=== PATIENT | female | born 1990 | race Caucasian/White ===

== ENCOUNTER → 2017-08-19 | Outpatient (CLI) | payer MEDICAID ==
[~2017-08-19] MED LIST: AC325T PO; AMOX500T2 PO; CEPH500C PO; CPR500T PO; GENT3.5O18 OP; HYDR-2889 PO; HYDR-2997 PO; HYDR-707 PO; Ibuprofen PO; KETO-22 PO; LRT10T PO; NAPR-243 PO; NITR-65 PO; NITR100C PO; OXYC-12 PO; PREN-54 PO; PREN1TAB25 PO; PRENATAL VITAMINS; PRM25T PO; PROM25SU10 RC; SULF1TAB35 PO; TRAM50TA2 PO; TRM50T PO
--- NOTE | 2017-08-19 13:53 | Diagnostic Imaging Report ---
PROCEDURE: US OB SINGLE FETUS <14 WKS. INDICATION: Evaluation for size and dates TECHNIQUE: Multiple real-time grayscale images were obtained of the gravid uterus. CORRELATION STUDY: None FINDINGS: There is presence of a single viable intrauterine currently in transverse position. [place] rump length measuring 20.4 mm with estimated age of 8 weeks 5 days. Estimated date of delivery of March 26, 2018. No abnormal perigestational fluid collections. heart tones demonstrate a rate of approximately 179 beats per minutes. Imaging of the adnexa demonstrates nonvisualization of either ovary could be owing to position or obscured by overlying bowel gas. IMPRESSION: Findings compatible with early viable interpreted estimated age of 8 weeks 5 days for sonographic estimated date of delivery March 26, 2018. Dictated by: Dictated on workstation # [id number]
== END ==
LOC: RAD 12:02
PROVIDERS: ATTEND Family Medicine
DX: Z36 Encounter for antenatal screening of mother (principal); Z3A.08 8 weeks gestation of pregnancy
CPT/HCPCS: 76801

== ENCOUNTER → 2017-11-10 | Outpatient (CLI) | payer MEDICAID ==
--- NOTE | 2017-11-10 14:43 | Diagnostic Imaging Report ---
INDICATION: survey. TECHNIQUE: Multiple real-time grayscale images were obtained over the gravid uterus. COMPARISON: 08/19/2017. FINDINGS: A single live intrauterine fetus is seen measuring 20 weeks 2 days in size with normal interval growth compared to the prior study. The fetus is in breech presentation at this time. Amniotic fluid was qualitatively normal. Placenta is posterior and grade 2 with no evidence of previa. heart rate was 144 beats per minute. anatomical survey demonstrates no detectable abnormalities. Normal-appearing kidneys, bladder, stomach, ventricles, four-chamber heart, and three-vessel cord noted. Normal appearing cord insertion and spine views were also noted. Cervical length is normal at 3.4 cm. Maternal ovaries were not visualized. Biometrical measurements are as follows: Biparietal 4.6 cm, age 20 weeks 0 days. Head circumference 17.4 cm, age 20 weeks 0 days. Abdominal circumference 14.6 cm, age 20 weeks 0 days. Femur length 3.5 cm, age 21 weeks 0 days. Sonographic estimate age: 20 weeks 2 days. Sonographic estimated date of delivery: 03/28/18. Estimated Weight: 347 gm (+/- 51 gm). LMP percentile: 33%. heart rate: 144 beats per minute. number: 1 of 1. IMPRESSION: Single live intrauterine fetus measuring at 20 weeks 2 days in size with normal interval growth compared to the prior study. There were no detectable abnormalities. Dictated by: Dictated on workstation # [id number]
== END ==
LOC: RAD 12:13
PROVIDERS: ATTEND Family Medicine
DX: Z34.92 Encounter for supervision of normal pregnancy, unspecified, second trimester (principal); Z3A.20 20 weeks gestation of pregnancy
CPT/HCPCS: 76805

== ENCOUNTER 2018-03-28 06:00 | Inpatient (IN) | payer MEDICAID ==
[~2018-03-28] VITALS: Ht 165.1 cm; Wt 111.6 kg
[2018-03-28] VITALS (30 sets, daily range): BP systolic 105–145; BP diastolic 57–94
[2018-03-28] MEDS ORDERED: D5 LR IV SOLUTION 1,000 ML IV SCH (06:12)
[2018-03-28 06:42] LABS: BASOPHILS % (AUTO) 0 % (0-10); EOSINOPHILS # (AUTO) 0.1 10^3/uL (0.0-0.3); EOSINOPHILS % (AUTO) 1 % (0-10); HEMATOCRIT 33 % (35-52); HEMOGLOBIN 10.7 G/DL (11.5-16.0); LYMPHOCYTES # (AUTO) 2.8 X 10^3 (1.0-4.0); LYMPHOCYTES % (AUTO) 32 % (12-44); MEAN CORPUSCULAR HEMOGLOBIN 29 PG (25-34); MEAN CORPUSCULAR HGB CONC 33 G/DL (32-36); MEAN CORPUSCULAR VOLUME 88 FL (80-99); MEAN PLATELET VOLUME 13.1 FL (7.4-10.4); MONOCYTES # (AUTO) 0.6 X 10^3 (0.0-1.0); MONOCYTES % (AUTO) 7 % (0-12); NEUTROPHILS # (AUTO) 5.2 X 10^3 (1.8-7.8); NEUTROPHILS % (AUTO) 60 % (42-75); PLATELET COUNT 163 10^3/uL (130-400); RED BLOOD COUNT 3.71 10^6/uL (4.35-5.85); RED CELL DISTRIBUTION WIDTH 14.4 % (10.0-14.5); WHITE BLOOD COUNT 8.7 10^3/uL (4.3-11.0)
[2018-03-28] MEDS ORDERED: OXYTOCIN/NORMAL SALINE 500 ML IV SCH ×2 (07:25→12:25)
--- NOTE | 2018-03-28 07:25 | History & Physical-OB ---
OB - Chief Complaint & HPI Date/Time Date of Admission: Date of Admission: March 28, 2018 at 06:03 Time Seen by Provider: 07:15 Chief Complaint/History OB-Reason for Admission/Chief: Induction of Labor Hx : 2 Hx Para: 1 Expected Date of Delivery: Mar 26, 2018 Gestational Age in Weeks: 40 Gestational Age in Days: 2 Indication for induction: post dates Admission Nurse Assessment Rev: Yes History of Labs GBS negative Allergies and Home Medications Allergies Coded Allergies: NKANo Known Allergies (Unverified Allergy, Mild, 06/07/09) Home Medications Sulfamethoxazole/Trimethoprim 1 Each Tablet, 1 EACH PO BID Prescribed by: KRYSTIAN PINA on 05/03/16 1612 Patient Home Medication List Home Medication List Reviewed: Yes OB - History Hx of Present Care: Yes Ultrasounds: Normal mid trimester US Obstetrical Complications: None Medical Complications: None Obstetrical History Hx Termination: Yes Hx Multiple Gestation: No Hx Stillbirth: No Hx Complication: No Hx Induced Hypertens: No Hx Maternal Gestational Diabet: No Delivery History Hx Dystocia: No Hx Large For Gestational Age I: No Hx Small for Gestational Age I: No Hx Section: No Hx Vaginal Delivery Post C-Sec: No Hx Blood Disorders: No Adverse Rxn to Tranfusion: No Patient Past Medical History no chronic medical problems Social History/Family History HIV/AIDS: No Sexually Transmitted Disease: No Immunizations Hepatitis A: No Hepatitis B: No Tetanus Booster (TDap): Unknown Date of Influenza Vaccine: Sep 10, 2014 OB - Admission Exam Physical Exam Vitals: Vital Signs 03/28/18 06:09 Temp 98.1 Pulse 83 Resp 18 B/P (MAP) 131/83 (99) O2 Delivery Room Air HEENT: Moist Membranes Heart: Rhythm Normal Lungs: Clear Abdomen: Gravid Extremities: Normal Cervical Dilatation: 2cm Effacement: 50% Station: -3 Membranes: Intact Heart Rate: 140's Accelerations: Accelerations Present Decelerations: No Decelerations Short Term Variability: Present Skilled Nursing Variability: Average (6-25) Contractions on Admission: >10 Minutes Apart Intensity: Mild Ashraf Scoring Tool (Modified) Dilation (cm): 1-2cm (1) Effacement (%): 31-51% (1) Descent/Station: -3 (0) Cervix Consistency: Soft (2) Cervix Position: Middle/Mid-Position (1) Add 1 point for: Each previous vaginal delivery (1) Ashraf Score: 6 Labs Laboratory Tests Test 03/28/18 06:15 Range/Units White Blood Count 8.7 4.3-11.0 10^3/uL Red Blood Count 3.71 L 4.35-5.85 10^6/uL Hemoglobin 10.7 L 11.5-16.0 G/DL Hematocrit 33 L 35-52 % Mean Corpuscular Volume 88 80-99 FL Mean Corpuscular Hemoglobin 29 25-34 PG Mean Corpuscular Hemoglobin Concent 33 32-36 G/DL Red Cell Distribution Width 14.4 10.0-14.5 % Platelet Count 163 130-400 10^3/uL Mean Platelet Volume 13.1 H 7.4-10.4 FL Neutrophils (%) (Auto) 60 42-75 % Lymphocytes (%) (Auto) 32 12-44 % Monocytes (%) (Auto) 7 0-12 % Eosinophils (%) (Auto) 1 0-10 % Basophils (%) (Auto) 0 0-10 % Neutrophils # (Auto) 5.2 1.8-7.8 X 10^3 Lymphocytes # (Auto) 2.8 1.0-4.0 X 10^3 Monocytes # (Auto) 0.6 0.0-1.0 X 10^3 Eosinophils # (Auto) 0.1 0.0-0.3 10^3/uL Basophils # (Auto) 0.0 0.0-0.1 10^3/uL OB - Assessment/Plan/Diagnosis Assessment Assessment: induction of labor Admission Dx 1. IUP at 40 weeks gestation Admission Status: Inpatient Order (span 2 midnights) Reason for Inpatient Admission: L&D Plan Plan: Induction Induction Method: AROM Other Plan pitocin augmentation ARIANNA ADAMS MD March 28, 2018 07:25
[2018-03-28] MEDS ORDERED: BUTORPHANOL INJ 2 MG/ML (STADOL) VIAL IV PRN (07:30)
[2018-03-28] MEDS: LACTATED RINGERS 1,000 ML IV SCH (11:30)
[2018-03-28] MEDS ORDERED: SUFENTA 0.6MCG/ML BUPIVA 0.125 100 ML ONE (12:00)
--- NOTE | 2018-03-28 12:24 | OB Labor & Delivery Record ---
L&D History Date of Service Date of Service: March 28, 2018 History Expected Date of Delivery: Mar 26, 2018 Gestational Age in Weeks: 40 Hx : 3 Hx Para: 2 Complications Events: Routine care Operative Indications (Cesarea: N/A-Vaginal Delivery Intrapartal Events: None L&D Stage1 Stage One Onset of Labor - Date: March 28, 2018 Onset of Labor - Time: 07:15 Monitors and Tracing Monitor Mode: Internal Heart Rate: 140 Monitor Accelerations: Uniform Monitor Decelerations: Variable Station: -2 Penitentiary Variability: Average (6-10) Short Term Variability: Present Presentation: Vertex Vital Signs VS - Last 72 Hours, by Label 03/28/18 03/28/18 03/28/18 03/28/18 06:09 07:15 07:30 07:45 Temp 98.1 98.3 Pulse 83 93 83 82 Resp 18 18 B/P (MAP) 131/83 (99) 127/87 (100) 128/87 (101) 136/86 (103) O2 Delivery Room Air Room Air Room Air Room Air 03/28/18 03/28/18 03/28/18 03/28/18 08:00 08:15 08:30 08:45 Temp 98.4 Pulse 76 81 90 75 Resp 16 B/P (MAP) 122/67 (85) 145/83 (103) 125/82 (96) 130/78 (95) O2 Delivery Room Air Room Air Room Air Room Air 03/28/18 03/28/18 03/28/18 03/28/18 09:00 09:15 09:30 09:45 Pulse 72 80 86 77 B/P (MAP) 105/58 (74) 111/59 (76) 131/68 (89) 122/60 (80) O2 Delivery Room Air Room Air Room Air Room Air 03/28/18 03/28/18 03/28/18 10:00 10:15 10:30 Temp 98.3 Pulse 82 82 77 Resp 18 B/P (MAP) 120/70 (87) 135/94 (108) 127/76 (93) O2 Delivery Room Air Room Air Room Air Signs of Distress by FHT Signs of Distress no Rupture of Membranes Spontaneous Ruture of Membrane: No Amniotic Membrane Rupture Time: 716 Amniotic Membrane Fluid Desc.: Clear L&D Stage2 Stage Two Stage II Date: March 28, 2018 Stage II Time: 12:12 Monitors and Tracing Monitor Mode: Internal Heart Rate: 140 Monitor Accelerations: Uniform Monitor Decelerations: Variable Product Grader Variability: Average (6-10) Short Term Variability: Present Position: Left Occiput Anterior Presentation: Vertex Signs of Distress by FHT Signs of Distress no Cord Descript/Complications Cord Vessel Description: 3 Vessels Delivery Type Infant Delivery Method: Spontaneous Vaginal Anterior Shoulder: Left Episiotomy/Perineal Laceration Laceraction(s)/Extensions: No Condition of Infant Delivery 1 minute Comment: 8 5 minute Comment: 9 Condition of Infant Condition of Infant: Living Exam: No Observed Abnormalities Resuscitation Resuscitation: N/A - Spontaneous Resp L&D Stage3 Stage Three Stage III Date: March 28, 2018 Stage III Time: 12:16 Pictocin Pitocin Administration mu/min: 12 Pitocin ml/hr: 12 Placenta Delivery Placenta Delivery: Spontaneous Delivery Summary Summary Estimated blood loss (mL): 200cc Condition of Delivery Examined: Cervix Examined Post Hemorrhage: No Intervention Required none ARIANNA ADAMS MD March 28, 2018 12:24
[2018-03-28] MEDS ORDERED: WITCH HAZEL(TUCKS) 40 EA JAR TOP PRN (12:30)
[2018-03-28] MEDS ORDERED: MEASLES,MUMPS,RUBELLA 1 EA INJ SQ ONE (12:30)
[2018-03-28] MEDS ORDERED: BENZOCAINE/MENTHOL (DERMOPLAST) 56 ML CAN TP PRN (12:30)
[2018-03-28] MEDS ORDERED: TETANUS,DIPTH,PERTUSS P/F (BOOSTRIX) 0.5 ML VIAL IM ONE (12:30)
[2018-03-28] MEDS ORDERED: HYDROcodone/APAP 5 MG/325 MG (LORTAB) TAB PO PRN (12:30)
[2018-03-28] MEDS: IBUPROFEN 600 MG (MOTRIN) TAB PO SCH ×3 (12:39→23:49)
[2018-03-28] MEDS ORDERED: CATHETER FLUSH 10 ML SYR IV SCH (14:00)
[2018-03-29] VITALS: BP 95/56
[2018-03-29 04:00] VITALS: BP 96/58
[2018-03-29] MEDS: LACTATED RINGERS 1,000 ML IV SCH (04:11)
[2018-03-29] MEDS: IBUPROFEN 600 MG (MOTRIN) TAB PO SCH ×2 (06:00→13:25)
[2018-03-29] MEDS: CATHETER FLUSH 10 ML SYR IV SCH ×2 (06:01→06:37)
[2018-03-29 06:09] LABS: BASOPHILS % (AUTO) 0 % (0-10); EOSINOPHILS # (AUTO) 0.1 10^3/uL (0.0-0.3); EOSINOPHILS % (AUTO) 1 % (0-10); HEMATOCRIT 31 % (35-52); HEMOGLOBIN 9.9 G/DL (11.5-16.0); LYMPHOCYTES # (AUTO) 2.6 X 10^3 (1.0-4.0); LYMPHOCYTES % (AUTO) 29 % (12-44); MEAN CORPUSCULAR HEMOGLOBIN 29 PG (25-34); MEAN CORPUSCULAR HGB CONC 32 G/DL (32-36); MEAN CORPUSCULAR VOLUME 88 FL (80-99); MEAN PLATELET VOLUME 12.7 FL (7.4-10.4); MONOCYTES # (AUTO) 0.6 X 10^3 (0.0-1.0); MONOCYTES % (AUTO) 7 % (0-12); NEUTROPHILS # (AUTO) 5.8 X 10^3 (1.8-7.8); NEUTROPHILS % (AUTO) 63 % (42-75); PLATELET COUNT 160 10^3/uL (130-400); RED BLOOD COUNT 3.47 10^6/uL (4.35-5.85); RED CELL DISTRIBUTION WIDTH 14.8 % (10.0-14.5); WHITE BLOOD COUNT 9.2 10^3/uL (4.3-11.0)
[2018-03-29] MEDS ORDERED: PRENATAL VITAMIN 1 EA TAB PO SCH (07:00)
--- NOTE | 2018-03-29 07:25 | Discharge Summary ---
Diagnosis/Chief Complaint Date of Admission March 28, 2018 at 06:03 Date of Discharge March 29, 2018 Discharge Date: March 29, 2018 Discharge Time: 15:00 Admission Diagnosis Admission Diagnosis 1. Intrauterine at term 40 weeks gestation 2. Anemia due to iron efficiency and Discharge Diagnosis 1. Intrauterine at term 40 weeks gestation 2. Anemia due to iron efficiency and Reason Hospital Visit 27-year-old 3 now term 3 female who initially presented to labor and delivery during the morning of March 28, 2018 for induction of labor. Patient was noted to be a 40 weeks 2 days gestation. Her EDC was noted to be March 26, 2018. Her care was essentially unremarkable. She had a few contractions on admission. Discharge Summary-OBS Procedures 1. Spontaneous vaginal delivery Discharge Physical Examination Allergies: Coded Allergies: NKANo Known Allergies (Unverified Allergy, Mild, 06/07/09) Vitals & I&Os Vital Signs Date Time Temp Pulse Resp B/P (MAP) Pulse Ox O2 Delivery O2 Flow Rate FiO2 03/29/18 04:00 97.4 60 18 96/58 (71) 97 Room Air 03/28/18 12:15 10.00 General Appearance: No Acute Distress Respiratory: Clear to Auscultation Cardiovascular: Regular Rate Abdominal: Soft Hospital Course Patient was admitted during the morning of March 28, 2018. She underwent AROM with placement of scalp electrode. Fluid was noted to be clear. Patient required Pitocin augmentation to achieve adequate contraction pattern. She was noted to have variable decelerations during the course of labor. Ultimately she went on to completion and was allowed to push. With pushing she delivered a term viable male with Apgars of 8 at 1 minute and 9 at 5 minutes. Delivery was accomplished on Mar 28 2018 at 1212. There was no episiotomy. Following delivery patient underwent routine care orders. She was noted to have no complications during the remainder of her hospital stay. She tolerated regular diet. She was ambulatory and without any shortness of breath. She denied any leg pain. She was felt ready for dismissal during the afternoon of March 29, 2018. She will utilize ibuprofen at home for uterine cramping. Pending Labs Laboratory Tests 03/29/18 05:53: White Blood Count 9.2, Red Blood Count 3.47, Hemoglobin 9.9, Hematocrit 31, Mean Corpuscular Volume 88, Mean Corpuscular Hemoglobin 29, Mean Corpuscular Hemoglobin Concent 32, Red Cell Distribution Width 14.8, Platelet Count 160, Mean Platelet Volume 12.7, Neutrophils (%) (Auto) 63, Lymphocytes (%) (Auto) 29 , Monocytes (%) (Auto) 7, Eosinophils (%) (Auto) 1, Basophils (%) (Auto) 0, Neutrophils # (Auto) 5.8, Lymphocytes # (Auto) 2.6, Monocytes # (Auto) 0.6, Eosinophils # (Auto) 0.1, Basophils # (Auto) 0.0 Discharge Instructions to patient/family Please see electronic discharge instructions given to patient. Discharge Medications Reviewed and agree with Discharge Medication list on patient's Discharge Instruction sheet Clinical Quality Measures DVT/VTE Risk/Contraindication: Risk Factor Score Per Nursin RFS Level Per Nursing on Admit: 2=Moderate ARIANNA ADAMS MD March 29, 2018 07:25
--- NOTE | 2018-03-29 07:28 | Discharge Inst-Women's Service ---
Discharge Inst-Women's Serv Depart Medication/Instructions New, Converted or Re-Newed RX: Other Instructions Jbly-huk-azbofde ibuprofen 2 or 3 tablets every 6 hours as needed for uterine cramping. Consults/Follow Up Additional Follow Up: Yes (In [address] Baer) Activity Activity: Activity as Tolerated Driving Instructions: You May Drive Nothing Inside Vagina: No Tarrants (for 6 weeks) Diet Discharge Diet: Regular Diet Return to The Hospital For: As below Symptoms to Report to : Bleeding Excessive, Pain Increased, Fever Over 101 Degrees F, Vaginal Discharge ARIANNA Valdes MD March 29, 2018 07:28
[2018-03-29 08:30] VITALS: BP 113/71
[2018-03-29 12:00] VITALS: BP 121/85
[2018-03-29 15:45] VITALS: BP 121/85
== END 2018-03-29 15:45 | disposition home or self-care (01) | DRG 775 ==
LOC: LDRP 06:03
PROVIDERS: ADMIT Family Medicine; ATTEND Family Medicine
PROC: 10E0XZZ Delivery of Products of Conception, External Approach (ICD-10-PCS; principal; 2018-03-28)
PROC: 10907ZC Drainage of Amniotic Fluid, Therapeutic from Products of Conception, Via Natural or Artificial Opening (ICD-10-PCS; 2018-03-28)
DX: O48.0 Post-term pregnancy (principal); O99.02 Anemia complicating childbirth; D50.9 Iron deficiency anemia, unspecified; Z3A.40 40 weeks gestation of pregnancy; Z37.0 Single live birth
CPT/HCPCS: 36415; 85025; 86850; 86900; 86901

== ENCOUNTER 2018-08-22 09:56 | Emergency (ER) | payer SELFPAY ==
[~2018-08-22] VITALS: Ht 160 cm; Wt 77.1 kg
--- OUTSIDE RECORDS SUMMARY | 2018-08-22 10:01 | XMS REPORT ---
Author Author NICHOLE BUTLER [facility] Address [address] [place] [address] Care Team Providers Care Drywall Finishing Foreman Name Role Phone CARRIENICHOLE Unavailable PROBLEMS Type Condition ICD9-CM Code ARX12-EG Code Onset Dates Condition Status SNOMED Code Problem Seasonal allergic rhinitis, unspecified allergic rhinitis trigger J30.2 Active 696492963 Problem Unspecified contraceptive management V25.9 Active 111916640 ALLERGIES No Information ENCOUNTERS Encounter Location Date Diagnosis [facility] [address] [address] Jun, [facility] [address] [address] Feb, BMI 40.0-44.9, adult Z68.41 and Lower back pain M54.5 [facility] [address] [address] March, Left hand pain M79.642 and Closed nondisplaced fracture of shaft of fifth metacarpal bone of left hand, initial encounter S62.357A [facility] [address] [address] Jan, Seasonal allergic rhinitis, unspecified allergic rhinitis trigger J30.2 [facility] [id number] [place] [address] Jan, [facility] [address] [address] Jan, [facility] [id number] [place] [address] Jan, [facility] [address] [address] Jan, [facility] [id number] [address] Jun, [facility] [address] [address] 15 Dec, 2010 [facility] [address] [address] Oct, [facility] [address] [address] Oct, [facility] [address] [address] Oct, [facility] [id number] [place] [address] Oct, [facility] [address] [address] Oct, [facility] [address] [address] Oct, [facility] [address] [address] Oct, [facility] [address] [address] Sep, IMMUNIZATIONS No Known Immunizations SOCIAL HISTORY Never Assessed REASON FOR VISIT lower back pain since this am. denies dysuria. sommer pt is 37 weeks , no UTI seen. pt encourage to go to hospital ad r/o labor. pt verbalized understanding. pts mother here to drive her. PLAN OF CARE VITAL SIGNS Height 65 in 2018-03-07 Weight 243.0 lbs 2018-03-07 Temperature 98.0 degrees Fahrenheit 2018-03-07 Heart Rate 90 bpm 2018-03-07 Respiratory Rate 20 2018-03-07 BMI 40.43 kg/m2 2018-03-07 Blood pressure systolic 128 mmHg 2018-03-07 Blood pressure diastolic 78 mmHg 2018-03-07 MEDICATIONS Medication Instructions Dosage Frequency Start Date End Date Duration Status Flonase Allergy Relief 50 MCG/ACT Nasally twice per day 1 spray in each nostril Jan, 30 day(s) Not-Taking RESULTS Name Result Date Reference Range UA LONG DIP (IN HOUSE) 2018-03-07 Lot # [id number] Exp date 2017 Clarity clear Color yellow Odor none GLU negative ARACELIS negative KET negative SG 1.020 BLO negative pH 5.5 Protein negative URO 0.2 NIT negative ROBYN 1+ Lot # [id number] Exp date February 2018 PROCEDURES Procedure Date Ordered Result Body Site URINALYSIS, AUTO, W/O SCOPE March 07, 2018 INSTRUCTIONS MEDICATIONS ADMINISTERED No Known Medications
--- OUTSIDE RECORDS SUMMARY | 2018-08-22 10:01 | XMS REPORT ---
Author Author CALLI COX Organization [facility] Address [address] [place] [address] Care Team Providers Care Cereal Maker Name Role Phone CALLI COX Unavailable PROBLEMS Type Condition ICD9-CM Code [id number] Code Onset Dates Condition Status SNOMED Code Problem Seasonal allergic rhinitis, unspecified allergic rhinitis trigger J30.2 Active 002186041 Problem Unspecified contraceptive management V25.9 Active [id number] ALLERGIES No Known Allergies SOCIAL HISTORY Never Assessed PLAN OF CARE Activity Details Follow Up prn Reason: VITAL SIGNS Height 65 in 2017-04-18 Weight 212.2 lbs 2017-04-18 Temperature 99.0 degrees Fahrenheit 2017-04-18 Heart Rate 92 bpm 2017-04-18 Respiratory Rate 20 2017-04-18 BMI 35.31 kg/m2 2017-04-18 Blood pressure systolic 90 mmHg 2017-04-18 Blood pressure diastolic 60 mmHg 2017-04-18 MEDICATIONS No Known Medications RESULTS Name Result Date Reference Range Xray : Hand, Left 3 views (IN HOUSE) 2017-04-18 PROCEDURES Procedure Date Ordered Result Body Site X-RAY EXAM OF HAND April 18, 2017 IMMUNIZATIONS No Known Immunizations
--- OUTSIDE RECORDS SUMMARY | 2018-08-22 10:01 | XMS REPORT ---
Author Author REGALADODONY Wright [facility] Address [address] [place] [address] Care Team Providers Care Asl Interpreter Name Role Phone DONY REGALADO Unavailable PROBLEMS Type Condition ICD9-CM Code FBQ35-GC Code Onset Dates Condition Status SNOMED Code Problem Seasonal allergic rhinitis, unspecified allergic rhinitis trigger J30.2 Active 713949070 Problem Unspecified contraceptive management V25.9 Active 982112683 ALLERGIES No Known Allergies ENCOUNTERS Encounter Location Date Diagnosis [facility] [id number] [place] [address] Jun, Evaluation regarding contraception options Z30.09 [facility] [id number] [place] [address] Feb, BMI 40.0-44.9, adult Z68.41 and Lower back pain M54.5 [facility] [id number] [place] [address] March, Left hand pain M79.642 and Closed nondisplaced fracture of shaft of fifth metacarpal bone of left hand, initial encounter S62.357A [facility] [id number] [place] [address] Jan, Seasonal allergic rhinitis, unspecified allergic rhinitis trigger J30.2 [facility] [id number] [place] [address] Jan, [facility] [id number] [place] [address] Jan, [facility] [id number] [place] [address] Jan, [facility] [address] [address] [address] Jan, [facility] [address] [place] [address] Jun, [facility] [address] [address] 15 Dec, 2010 [facility] [address] [address] Oct, [facility] [address] [place] [address] Oct, [facility] [address] [place] [address] 14 Oct, 2010 [facility] [address] [place] [address] Oct, [facility] [address] [place] [address] Oct, [facility] [address] [address] Oct, [facility] [address], [place] [address] Oct, [facility] [address] [address] Sep, IMMUNIZATIONS No Known Immunizations SOCIAL HISTORY Never Assessed REASON FOR VISIT iud consult-----Neema PLAN OF CARE Activity Details Follow Up 3 months/1 year Reason: VITAL SIGNS Height 65 in 2018-07-03 Weight 215 lbs 2018-07-03 Temperature 98.3 degrees Fahrenheit 2018-07-03 Heart Rate 90 bpm 2018-07-03 Respiratory Rate 20 2018-07-03 BMI 35.77 kg/m2 2018-07-03 Blood pressure systolic 104 mmHg 2018-07-03 Blood pressure diastolic 62 mmHg 2018-07-03 MEDICATIONS No Known Medications RESULTS Name Result Date Reference Range TEST, URINE (IN HOUSE) 2018-07-03 RESULTS negative Lot # [id number] Control + Exp date 12/28/19 PROCEDURES Procedure Date Ordered Result Body Site URINE TEST Jul 03, 2018 No Charge Jul 03, 2018 INSTRUCTIONS MEDICATIONS ADMINISTERED No Known Medications
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
[2018-08-22] MEDS ORDERED: DOXY100C42 PO (10:11)
[2018-08-22] MEDS ORDERED: NS IV 1000 ML 1,000 ML IV SCH (10:15)
[2018-08-22] MEDS ORDERED: KETOROLAC 30 MG/ML VIAL IVP ONE (10:15)
[2018-08-22] MEDS ORDERED: cefTRIAXone FOR IV USE 1,000 MG in NS (IVPB) 50 ML IV ONE (10:15)
--- NOTE | 2018-08-22 10:26 | ED General ---
General Chief Complaint: General Problems/Pain Stated Complaint: FEVER;CHILLS;HEADACHES Nursing Triage Note: ARRIVED VIA AMB TO ROOM 05. PT STATES SHE HAS BEEN SICK FOR OVER A WEEK WITH HEADACHES, GEN BODY ACHES, FEVER, AND RASH. HAS BEEN DX FOR UTI AND TREATED FOR [place] SPOTTED FEVER BUT HAS NOT HAD BLOOD WORK TO PROVE IT. MOM DOES MOST OF THE TALKING AND STATES THEY ARE NOT LEAVING UNTIL THEY KNOW WHATS WRONG.. Nursing Sepsis Screen: No Definite Risk Source of Information: Patient, Family (mom) Exam Limitations: No Limitations History of Present Illness Date Seen by Provider: Aug 22, 2018 Time Seen by Provider: 10:12 Initial Comments The patient arrives to the ER by private conveyance with her mother and a chief complaint that she has had 3 weeks now malaise and in the last week is gotten worse with fever or chills and a faint red body rash. She has gone 2 weeks ago to an urgent care doctor and was told she had allergies. Last week, Tuesday she went again because of the rash starting up and was told it might be [place] spotted fever and put on doxycycline and given a shot of steroids for the rash. She does not have any blood or workup done at that time. Her mother says that this was unsatisfactory because now 5 days later the patient is still having night sweats and subjective fevers chills body aches and headache. The mother says she been using Tylenol every 2 hours and ibuprofen as well but the patient insists she's not had any Tylenol Motrin or other NSAIDs today. No objective fevers. No nausea or vomiting. She has had decreased appetite and thinks in the last 3 weeks she's lost about 10 pounds. No diarrhea, abdominal pain, chest pain, shortness of breath, cough, fevers. She picked up the doxycycline , 5 days ago and started taking it but has not taken it today because she says she's not had any appetite take any medicine with. She's been taking 100 mg twice a day. The patient was also told Tuesday last week 6 days ago that she had a UTI with bacteria seen in the urine and the doxycycline should be sufficient. The patient is tearful throughout the interview. Her mother insists that they are dissatisfied with her prior engagements with urgent care and they are scared that the patient is not getting better and worried that the diagnosis may be missed and that she may . The mother insists that they will not leave the ER until they have an answer. LMP yesterday. The patient denies any urinary symptoms then or now however she says she does have frequent urinary tract infections and when they do happen she does not have any symptoms until it gets so bad that it causes flank pain. She denies any flank pain today. Allergies and Home Medications Allergies Coded Allergies: NKANo Known Allergies (Unverified Allergy, Mild, 06/07/09) Home Medications Doxycycline Monohydrate 100 Mg Capsule, 100 MG PO BID, (Reported) Patient Home Medication List Home Medication List Reviewed: Yes Review of Systems Review of Systems Constitutional: chills, diaphoresis, dizziness, fever, malaise EENTM: No ear discharge, No hearing loss, No ear pain Respiratory: No cough, No short of breath Cardiovascular: No chest pain, No edema Gastrointestinal: No abdominal pain, No constipation, No diarrhea, No nausea, No vomiting Genitourinary: No discharge, No dysuria Musculoskeletal: No back pain, No joint pain; muscle pain, muscle stiffness, neck pain (bilateral) Skin: rash Psychiatric/Neurological: Denies Anxiety, Denies Depressed; Headache; Denies Numbness, Denies Paresthesia Past Nzkblrb-Ktpjef-Qtviqe Hx Patient Social History Alcohol Use: Denies Use Recreational Drug Use: Yes Drug of Choice: MJ Smoking Status: Never a Smoker Recent Foreign Travel: No Contact w/Someone Who Travel: No Recent Infectious Disease Expo: No Recent Hopitalizations: No Immunizations Up To Date Tetanus Booster (TDap): Unknown PED Vaccines UTD: Yes Date of Influenza Vaccine: Sep 10, 2014 Seasonal Allergies Seasonal Allergies: No Past Medical History Surgeries: Yes Ear Surgery, Eye Surgery Respiratory: No Cardiac: No Neurological: No Reproductive Disorders: No Female Reproductive Disorders: Denies Sexually Transmitted Disease: No HIV/AIDS: No Genitourinary: No Gastrointestinal: No Musculoskeletal: No Fractures Endocrine: No HEENT: No Chronic Ear Infection Cancer: No Psychosocial: No Anxiety, Depression Integumentary: No Eczema Blood Disorders: No Adverse Reaction/Blood Tranf: No Family Medical History No Family History of: AIDS Abdominal aortic aneurysm Dubois's disease Alcoholism Alzheimer's disease Aphasia Arthritis Asthma Cancer of mouth Cardiovascular disease Cataracts Colon cancer Completed stroke Congenital disease Congenital heart disease Coronary thrombosis Cystic fibrosis Deafness or hearing loss Dementia Diabetes mellitus Drug abuse Dysphasia Fibrocystic disease of breast Gastroenteritis Glaucoma Headache disorder Hypercholesterolemia Hypertension Infertility Kidney disease Myocardial infarction Neoplasm Not obtainable due to adoption Osteoporosis Parkinson's disease Prostate cancer Psychosocial problem Respiratory disorder Seizure disorder Severe allergy Thyroid disease Tuberculosis Visual disorder No Pertinent Family Hx Physical Exam Vital Signs Vital Signs - First Documented 08/22/18 10:00 Temp 98.4 Pulse 77 Resp 16 B/P (MAP) 134/74 (94) Pulse Ox 98 O2 Delivery Room Air Capillary Refill : Less Than 3 Seconds Height, Weight, BMI Height: 5'3.00" Weight: 170lbs. 0.0oz. [id number]; 40.9 BMI Method:Estimated General Appearance: No Apparent Distress, Anxious, Obese Eyes: Bilateral Eye Normal Inspection, Bilateral Eye PERRL, Bilateral Eye EOMI HEENT: PERRL/EOMI, TMs Normal (mild, chronic otosclerosis bilateral), Normal ENT Inspection, Pharynx Normal, Moist Mucous Membranes Neck: Full Range of Motion, Normal Inspection, Non Tender, Supple Respiratory: Chest Non Tender, Lungs Clear, Normal Breath Sounds, No Accessory Muscle Use, No Respiratory Distress Cardiovascular: Regular Rate, Rhythm, No Edema, Normal Peripheral Pulses Gastrointestinal: Normal Bowel Sounds, No Organomegaly, Non Tender, Soft Neurologic/Psychiatric: Alert, Oriented x3, No Motor/Sensory Deficits, special delivery carrier II- XII Norm as Tested, Other (anxious, tearful affect but easily consolable) Skin: Rash (faint, blanchable, erythematous macular rash on the forearms and trunk that is nonpruritic, non-excoriated without vesicles or nodules. Nonindurated. Spares palms and face.) Focused Exam Lactate Level 08/22/18 10:25: Lactic Acid Level 0.67 Lactic Acid Level Laboratory Tests Test 08/22/18 10:25 Lactic Acid Level 0.67 MMOL/L (0.50-2.00) Progress/Results/Core Measures Suspected Sepsis Recent Fever Within 48 Hours: Yes Infection Criteria Present: Documented Infection New/Unexplained Altered Menta: No Sepsis Screen: No Definite Risk SIRS Temperature:98.4 Pulse: 77 Respiratory Rate: 16 Laboratory Tests 08/22/18 10:25: White Blood Count 5.6 Blood Pressure 134 /74 Mean: 94 08/22/18 10:25: Lactic Acid Level 0.67 Laboratory Tests 08/22/18 10:25: Creatinine 0.78, INR Comment 1.0, Platelet Count 206, Total Bilirubin 0.3 Results/Orders Lab Results Laboratory Tests Test 08/22/18 10:20 08/22/18 10:25 08/22/18 11:51 Range/Units Urine Color YELLOW Urine Clarity CLEAR Urine pH 7 5-9 Urine Specific [place] 1.005 L 1.016-1.022 Urine Protein NEGATIVE NEGATIVE Urine Glucose (UA) NEGATIVE NEGATIVE Urine Ketones NEGATIVE NEGATIVE Urine Nitrite NEGATIVE NEGATIVE Urine Bilirubin NEGATIVE NEGATIVE Urine Urobilinogen NORMAL NORMAL MG/DL Urine Leukocyte Esterase NEGATIVE NEGATIVE Urine RBC (Auto) 2+ H NEGATIVE Urine RBC RARE /HPF Urine WBC NONE /HPF Urine Squamous Epithelial Cells 0-2 /HPF Urine Crystals NONE /LPF Urine Bacteria TRACE /HPF Urine Casts NONE /LPF Urine Mucus NEGATIVE /LPF Urine Culture Indicated NO Urine Opiates Screen NEGATIVE NEGATIVE Urine Oxycodone Screen NEGATIVE NEGATIVE Urine Methadone Screen NEGATIVE NEGATIVE Urine Propoxyphene Screen NEGATIVE NEGATIVE Urine Barbiturates Screen NEGATIVE NEGATIVE Ur Tricyclic Antidepressants Screen NEGATIVE NEGATIVE Urine Phencyclidine Screen NEGATIVE NEGATIVE Urine Amphetamines Screen NEGATIVE NEGATIVE Urine Methamphetamines Screen NEGATIVE NEGATIVE Urine Benzodiazepines Screen NEGATIVE NEGATIVE Urine Cocaine Screen NEGATIVE NEGATIVE Urine Cannabinoids Screen POSITIVE H NEGATIVE White Blood Count 5.6 4.3-11.0 10^3/uL Red Blood Count 4.59 4.35-5.85 10^6/uL Hemoglobin 12.5 11.5-16.0 G/DL Hematocrit 38 35-52 % Mean Corpuscular Volume 83 80-99 FL Mean Corpuscular Hemoglobin 27 25-34 PG Mean Corpuscular Hemoglobin Concent 33 32-36 G/DL Red Cell Distribution Width 15.0 H 10.0-14.5 % Platelet Count 206 130-400 10^3/uL Mean Platelet Volume 11.6 H 7.4-10.4 FL Neutrophils (%) (Auto) 42 42-75 % Lymphocytes (%) (Auto) 46 H 12-44 % Monocytes (%) (Auto) 10 0-12 % Eosinophils (%) (Auto) 1 0-10 % Basophils (%) (Auto) 1 0-10 % Neutrophils # (Auto) 2.3 1.8-7.8 X 10^3 Lymphocytes # (Auto) 2.6 1.0-4.0 X 10^3 Monocytes # (Auto) 0.5 0.0-1.0 X 10^3 Eosinophils # (Auto) 0.1 0.0-0.3 10^3/uL Basophils # (Auto) 0.1 0.0-0.1 10^3/uL Prothrombin Time 13.3 12.2-14.7 SEC INR Comment 1.0 0.8-1.4 Activated Partial Thromboplast Time 31 24-35 SEC Sodium Level 139 135-145 MMOL/L Potassium Level 3.5 L 3.6-5.0 MMOL/L Chloride Level 105 98-107 MMOL/L Carbon Dioxide Level 26 21-32 MMOL/L Anion Gap 8 5-14 MMOL/L Blood Urea Nitrogen 9 7-18 MG/DL Creatinine 0.78 0.60-1.30 MG/DL Estimat Glomerular Filtration Rate > 60 BUN/Creatinine Ratio 12 Glucose Level 90 70-105 MG/DL Lactic Acid Level 0.67 0.50-2.00 MMOL/L Calcium Level 9.1 8.5-10.1 MG/DL Corrected Calcium 9.1 8.5-10.1 MG/DL Total Bilirubin 0.3 0.1-1.0 MG/DL Aspartate Amino Transf (AST/SGOT) 52 H 5-34 U/L Alanine Aminotransferase (ALT/SGPT) 74 H 0-55 U/L Alkaline Phosphatase 99 40-136 U/L Total Protein 7.3 6.4-8.2 GM/DL Albumin 4.0 3.2-4.5 GM/DL My Orders Orders - CECILIAFABY Rodrigo Cbc With Automated Diff (08/22/18 10:15) Comprehensive Metabolic Panel (08/22/18 10:15) Blood Culture (08/22/18 10:15) Sputum Culture (08/22/18 10:15) Urinalysis (08/22/18 10:15) Urine Culture (08/22/18 10:15) Protime With Inr (08/22/18 10:15) Partial Thromboplastin Time (08/22/18 10:15) Chest 1 View, Ap/Pa Only (08/22/18 10:15) Saline Lock/Iv-Start (08/22/18 10:15) Saline Lock/Iv-Start (08/22/18 10:15) Vital Signs Adult Sepsis Patie Q15M (08/22/18 10:15) O2 (08/22/18 10:15) Remove Rings In Anticipation O (08/22/18 10:15) Lactic Acid Analyzer (08/22/18 10:15) Ns Iv 1000 Ml (Sodium Chloride 0.9%) (08/22/18 10:15) Ceftriaxone For Iv Use (Rocephin For I (08/22/18 10:15) Ketorolac Injection (Toradol Injection) (08/22/18 10:15) Urine Bedside (08/22/18 10:26) Tick Panel With Lyme Eia (08/22/18 10:38) Drug Screen Stat (Urine) (08/22/18 10:38) Medications Given in ED Current Medications Medications Dose Ordered Sig/Aime Route Start Time Stop Time Status Last Admin Dose Admin Ketorolac Tromethamine 15 mg ONCE ONCE IVP 08/22/18 10:15 08/22/18 10:21 DC 08/22/18 10:32 15 MG Vital Signs/I&O 08/22/18 10:00 Temp 98.4 Pulse 77 Resp 16 B/P (MAP) 134/74 (94) Pulse Ox 98 O2 Delivery Room Air Capillary Refill : Less Than 3 Seconds Blood Pressure Mean: 94 Progress Note #1: Time: 10:29 Progress Note We tempered the patient and mother's expectations as far as obtaining diagnosis today. We then explained to them that we would rule out emergent life threatening or dangerous diagnoses. We will also send off for a tick titer antibody studies. The patient did have tachycardia when she arrived although that could be just from her being upset/sister. She produced a very dilute urine sample. [place] spotted fever would definitely be in the differential given malaise, body aches, fever and rash. She is not feverish today. We will obtain urinalysis and culture results from the clinic and do a septic workup today based on her history of fever and present tachycardia. We'll give her 1 L fluids which would be 20 mL/kg based on ideal body weight of 55 kg. Will use Toradol for her malaise/bodyaches. Progress Note #2: Time: 10:59 Progress Note RN called [facility] lab and the urinalysis was collected on 20 August, 2 days ago and is still in a pending status. No preliminary urine culture or micros available at this time. White count is 5000. Rest of her labs are unremarkable except for a very slight elevation of the AST ALT. She's not having any abdominal symptoms, diarrhea or other concerning features. Could think about hepatitis and we'll offer to do testing that she can follow up outpatient on. Diagnostic Imaging Diagonstic Imaging: Xray Plain Films/CT/US/NM/MRI: chest (1v) Comments No acute cardiopulmonary processes noted on this one view AP chest. NAME: ДМИТРИЙ TORRES MED REC#: [id number] PT STATUS: REG ER : 1990 PHYSICIAN: FABY BROOKS MD ADMIT DATE: 08/22/18/ER Draft Date of Exam:08/22/18 CHEST 1 VIEW, AP/PA ONLY INDICATION: Fever, rash, and headache. Comparison is made with prior examination from 05/03/2016. FINDINGS: The heart size, mediastinal configuration, and pulmonary vascularity are within normal limits. There is no pleural effusion, pneumothorax, or pneumonia. The osseous structures are unremarkable. IMPRESSION: No acute cardiopulmonary abnormality. Dictated on workstation # [id number] Dict: 08/22/18 1055 Trans: 08/22/18 1059 [id number] Interpreted by: CONCHA REDDY MD Electronically signed by: Reviewed: Reviewed by Me Departure Impression Primary Impression: Malaise and fatigue Additional Impression: Rash and nonspecific skin eruption Disposition: HOME, SELF-CARE Condition: Stable Departure-Patient Inst. Decision time for Depature: 12:15 Referrals: NICHOLE BUTLER DANIEL J MD (PCP/Family) Primary Care Physician Patient Instructions: [place] Spotted Fever (DC) Add. Discharge Instructions: Continue taking the doxycycline twice a day as prescribed. Encourage lots of fluids if not eating. Follow-up with a primary care doctor within the next 1-2 weeks to review the culture results from her urinalysis as well as the tick titers that were drawn here in the ER. Return to the ER promptly if you begin to experience chest pain, shortness of breath, intractable nausea and vomiting or abdominal pain. If you're having body aches, malaise or fever then you should take ibuprofen 800 mg every 8 hours and/or Naprosyn/Aleve 2 capsules twice a day as needed. You can also use Tylenol 1000 g every 8 hours. For your itching you can use Claritin or Zyrtec once or twice a day in addition to the hydroxyzine. Muscle rubs or Vicks and Mentholatum or useful for soothing the achiness in your shoulder and neck. All discharge instructions reviewed with patient and/or family. Voiced understanding. Copy Copies To 1: NICHOLE BUTLER TITUS J Aug 22, 2018 10:26
[2018-08-22 10:50] LABS: BASOPHILS # (AUTO) 0.1 10^3/uL (0.0-0.1); BASOPHILS % (AUTO) 1 % (0-10); EOSINOPHILS # (AUTO) 0.1 10^3/uL (0.0-0.3); EOSINOPHILS % (AUTO) 1 % (0-10); HEMATOCRIT 38 % (35-52); HEMOGLOBIN 12.5 G/DL (11.5-16.0); LYMPHOCYTES # (AUTO) 2.6 X 10^3 (1.0-4.0); LYMPHOCYTES % (AUTO) 46 % (12-44); MEAN CORPUSCULAR HEMOGLOBIN 27 PG (25-34); MEAN CORPUSCULAR HGB CONC 33 G/DL (32-36); MEAN CORPUSCULAR VOLUME 83 FL (80-99); MEAN PLATELET VOLUME 11.6 FL (7.4-10.4); MONOCYTES # (AUTO) 0.5 X 10^3 (0.0-1.0); MONOCYTES % (AUTO) 10 % (0-12); NEUTROPHILS # (AUTO) 2.3 X 10^3 (1.8-7.8); NEUTROPHILS % (AUTO) 42 % (42-75); PLATELET COUNT 206 10^3/uL (130-400); RED BLOOD COUNT 4.59 10^6/uL (4.35-5.85); WHITE BLOOD COUNT 5.6 10^3/uL (4.3-11.0)
[2018-08-22 10:57] LABS: BILIRUBIN,URINE NEGATIVE (NEGATIVE); CLARITY,URINE CLEAR; COLOR,URINE YELLOW; GLUCOSE, URINE (UA) NEGATIVE (NEGATIVE); KETONES,URINE NEGATIVE (NEGATIVE); LEUKOCYTE ESTERASE ,URINE NEGATIVE (NEGATIVE); NITRITE,URINE NEGATIVE (NEGATIVE); PH,URINE 7 (5-9); PROTEIN,URINE NEGATIVE (NEGATIVE); UROBILINOGEN,URINE NORMAL (NORMAL)
--- NOTE | 2018-08-22 10:59 | Diagnostic Imaging Report ---
INDICATION: Fever, rash, and headache. Comparison is made with prior examination from 05/03/2016. FINDINGS: The heart size, mediastinal configuration, and pulmonary vascularity are within normal limits. There is no pleural effusion, pneumothorax, or pneumonia. The osseous structures are unremarkable. IMPRESSION: No acute cardiopulmonary abnormality. Dictated by: Dictated on workstation # [id number]
[2018-08-22 11:03] LABS: BACTERIA,URINE TRACE /HPF; RBC,URINE RARE /HPF; SQUAMOUS EPITHELIAL CELL,UR 0-2 /HPF
[2018-08-22 11:07] LABS: PROTHROMBIN TIME PATIENT 13.3 SEC (12.2-14.7)
[2018-08-22 11:13] LABS: ALANINE AMINOTRANSFERASE 74 U/L (0-55); ALKALINE PHOSPHATASE 99 U/L (40-136); BILIRUBIN,TOTAL 0.3 MG/DL (0.1-1.0); BUN/CREATININE RATIO 12; CALCIUM 9.1 MG/DL (8.5-10.1); CARBON DIOXIDE 26 MMOL/L (21-32); CHLORIDE 105 MMOL/L (98-107); CREATININE SERUM 0.78 MG/DL (0.60-1.30); GFR ESTIMATED > 60; GLUCOSE 90 MG/DL (70-105); POTASSIUM 3.5 MMOL/L (3.6-5.0); SODIUM 139 MMOL/L (135-145); TOTAL PROTEIN 7.3 GM/DL (6.4-8.2)
[2018-08-22 11:44] LABS: AMPHETAMINE SCREEN, URINE NEGATIVE (NEGATIVE); BENZODIAZEPINES SCREEN URINE NEGATIVE (NEGATIVE); COCAINE SCREEN URINE NEGATIVE (NEGATIVE)
[2018-08-22 11:45] LABS: BARBITURATE SCREEN URINE NEGATIVE (NEGATIVE); CANNABINOID SCREEN, URINE POSITIVE (NEGATIVE); METHADONE STAT NEGATIVE (NEGATIVE); METHAMPHETAMINE SCREEN URINE S NEGATIVE (NEGATIVE); OPIATE SCREEN URINE NEGATIVE (NEGATIVE); OXYCODONE STAT NEGATIVE (NEGATIVE); PROPOXYPHENE STAT NEGATIVE (NEGATIVE); TRICYCLIC ANTIDEPRESSANTS SCRE NEGATIVE (NEGATIVE)
[2018-08-22 12:29] VITALS: BP 106/85
== END 2018-08-22 12:29 | disposition home or self-care (01) ==
LOC: EDUNIT# 09:56 → ER 09:57
DX: R53.81 Other malaise (principal); R53.83 Other fatigue; R21 Rash and other nonspecific skin eruption; R51 Headache; F41.9 Anxiety disorder, unspecified; F32.9 Major depressive disorder, single episode, unspecified; F12.10 Cannabis abuse, uncomplicated
CPT/HCPCS: 36415; 71045; 80053; 80306; 81000; 83605; 84703; 85025; 85610; 85730; 86618; 86666; 86668; 86757; 87040; 87088; 96361; 96374

== ENCOUNTER 2018-11-19 17:33 | Emergency (ER) | payer SELFPAY ==
[~2018-11-19] VITALS: Ht 165.1 cm; Wt 93.0 kg
[~2018-11-19 17:33] MED LIST changes: +DOXY100C42 PO
[2018-11-19] MEDS ORDERED: PERM60CR4 TP (18:43)
--- NOTE | 2018-11-19 18:43 | ED Integumentary General ---
General Chief Complaint: Skin/Wound Problems Stated Complaint: RASH IN CREASES OF SKIN Nursing Triage Note: Pt ambulated to triage w/o difficulty. Pt reports being seen at [facility] today. Pt reports practitioner at [facility] believed pt has scabies and wanted to treat. Pt didn't believe it was scabies and left clinic. Pt reports practitioner called in RXs for yeast infection. Pt then googled scabies and now believes that is what the rash is and tried to return to clinic, but clinic was already closed. Pt reports itching has been going on for at least a month and pt has tried multiple OTC creams. Rash is in between and under breast, under stomach, thighs, wrist. Pt c/o extreme itching. Pt denies anyone else in the family having the rash. Source: patient Exam Limitations: no limitations History of Present Illness Date Seen by Provider: Nov 19, 2018 Time Seen by Provider: 18:41 Initial Comments Patient is a 28-year-old female who presents to the emergency room with complaints of a rash under her breast into her groin area. She was seen at [facility] and they were unsure if it was scabies or yeast infection and the patient did not believe she had scabies and wanted be treated for the yeast infection but went home and looked on the Internet of images of scabies and his can that she has scabies now. She would like treated for scabies at this time. Allergies and Home Medications Allergies Coded Allergies: NKANo Known Allergies (Unverified Allergy, Mild, 06/07/09) Home Medications Doxycycline Monohydrate 100 Mg Capsule, 100 MG PO BID, (Reported) Past Ezbcwve-Gbnomg-Rwgpbw Hx Patient Social History Alcohol Use: Occasionally Uses Recreational Drug Use: No Drug of Choice: MJ Smoking Status: Never a Smoker 2nd Hand Smoke Exposure: No Recent Foreign Travel: No Contact w/Someone Who Travel: No Recent Infectious Disease Expo: No Recent Hopitalizations: No Physical Abuse: No Sexual Abuse: No Immunizations Up To Date Tetanus Booster (TDap): Unknown PED Vaccines UTD: Yes Date of Influenza Vaccine: Sep 10, 2014 Seasonal Allergies Seasonal Allergies: No Past Medical History Surgeries: Yes Ear Surgery, Eye Surgery Respiratory: No Cardiac: No Neurological: No Reproductive Disorders: No Female Reproductive Disorders: Denies Sexually Transmitted Disease: No HIV/AIDS: No Genitourinary: No Gastrointestinal: No Musculoskeletal: No Fractures Endocrine: No HEENT: No Chronic Ear Infection Cancer: No Psychosocial: No Anxiety, Depression Integumentary: No Eczema Blood Disorders: No Adverse Reaction/Blood Tranf: No Family Medical History No Family History of: AIDS Abdominal aortic aneurysm Antonino's disease Alcoholism Alzheimer's disease Aphasia Arthritis Asthma Cancer of mouth Cardiovascular disease Cataracts Colon cancer Completed stroke Congenital disease Congenital heart disease Coronary thrombosis Cystic fibrosis Deafness or hearing loss Dementia Diabetes mellitus Drug abuse Dysphasia Fibrocystic disease of breast Gastroenteritis Glaucoma Headache disorder Hypercholesterolemia Hypertension Infertility Kidney disease Myocardial infarction Neoplasm Not obtainable due to adoption Osteoporosis Parkinson's disease Prostate cancer Psychosocial problem Respiratory disorder Seizure disorder Severe allergy Thyroid disease Tuberculosis Visual disorder No Pertinent Family Hx Physical Exam Vital Signs Vital Signs - First Documented 11/19/18 18:09 Temp 98.0 Pulse 67 Resp 12 B/P (MAP) 129/74 (92) Pulse Ox 100 O2 Delivery Room Air Capillary Refill : Less Than 3 Seconds Progress/Results/Core Measures Results/Orders Vital Signs/I&O 11/19/18 18:09 Temp 98.0 Pulse 67 Resp 12 B/P (MAP) 129/74 (92) Pulse Ox 100 O2 Delivery Room Air Blood Pressure Mean: 92 Departure Impression Primary Impression: Yeast infection of the skin Disposition: 01 HOME, SELF-CARE Condition: Stable/Unchanged Departure-Patient Inst. Decision time for Depature: 18:42 Referrals: NO,LOCAL PHYSICIAN (PCP/Family) Primary Care Physician Patient Instructions: Yeast Infection (DC) Add. Discharge Instructions: Continue the yeast infection medication that was previously prescribed by [facility]. Use the permethrin cream as directed. Follow-up with [facility] within 1 week for recheck. Return back to the emergency room for any worsening symptoms or concerns as needed. All discharge instructions reviewed with patient and/or family. Voiced understanding. Scripts Permethrin (Permethrin) 60 Gm Cream..g. 60 GM TP ONCE, #1 TUBE Prov: MARCIE TELLO 11/19/18 MARCIE TELLO Nov 19, 2018 18:43
[2018-11-19 19:02] VITALS: BP 129/74
== END 2018-11-19 19:02 | disposition home or self-care (01) ==
LOC: EDUNIT# 17:33 → ER 17:34
DX: B37.9 Candidiasis, unspecified (principal); F41.9 Anxiety disorder, unspecified; F32.9 Major depressive disorder, single episode, unspecified
CPT/HCPCS: 99282